=== PATIENT | male | born 1985 | race Two or more races ===

== ENCOUNTER 2023-06-04 17:12 | Emergency (ER) | payer OTHER ==
[~2023-06-04] VITALS: Ht 188 cm; Wt 72.5 kg
[2023-06-04 17:39] LABS: Basophils # (auto) 0.1 10 ^3/uL (0-0.2); Basophils % (auto) 0.9 % (0.0-2.0); Eosinophils # (auto) 0.2 10 ^3/uL (0-0.8); Eosinophils % (auto) 3.2 % (0.0-7.0); Hematocrit 41.6 % (41.0-53.0); Hemoglobin 14.7 g/dL (13.5-17.5); Lymphocytes # (auto) 2.8 10 ^3/uL (0.4-5.4); Lymphocytes % (auto) 40.8 % (10.0-50.0); Mean Corpuscular Hemoglobin 31.3 pg (28.0-32.0); Mean Corpuscular Hgb Conc. 35.2 g/dL (32.0-36.0); Mean Corpuscular Volume 88.7 fL (80.0-100.0); Monocytes # (auto) 0.6 10 ^3/uL (0-1.3); Monocytes % (auto) 8.7 % (0.0-12.0); Neutrophils # (auto) 3.2 10 ^3/uL (1.6-8.6); Neutrophils % (auto) 46.4 % (37.0-80.0); Nucleated Red Blood Cells % 0.5 %; Red Blood Cells 4.69 10^6/uL (4.5-5.90); Red Cell Distribution Width 13.5 % (11.8-14.3)
[2023-06-04 17:51] LABS: Albumin 4.2 g/dL (3.4-5.0); Calcium 9.1 mg/dL (8.5-10.1); Magnesium 2.4 mg/dL (1.6-2.6); Potassium 3.9 mmol/L (3.5-5.1)
[2023-06-04 18:03] LABS: BUN/Creatinine Ratio 16.8 (10.0-20.0); Bilirubin, Total 0.9 mg/dL (0.2-1.0); Total Protein 7.2 g/dL (6.4-8.2)
[2023-06-04] MEDS ORDERED: HYDR1CAP27 PO (19:11)
[2023-06-04 19:29] VITALS: BP 113/78
== END 2023-06-04 19:32 | disposition home or self-care (01) ==
LOC: ER 17:12
DX: R07.89 Other chest pain (principal); F41.9 Anxiety disorder, unspecified
CPT/HCPCS: 36415; 71045; 80053; 83735; 84484; 85025; 93005

== ENCOUNTER 2023-12-27 13:58 | Emergency (ER) | payer OTHER ==
[~2023-12-27] VITALS: Ht 188 cm; Wt 76.3 kg
[~2023-12-27 13:58] MED LIST: HYDR1CAP27 PO
[2023-12-27] MEDS ORDERED: DexAMETHasone SOD PHOS 10MG/1ML VIAL INJ IM ONE (14:15)
[2023-12-27] MEDS ORDERED: diphenhdrAMINE HCL 25 MG CAP PO ONE (14:15)
[2023-12-27 16:21] VITALS: BP 114/74; PULSE 81; RESP 18; TEMP 97.1; O2SAT 99
== END 2023-12-27 16:33 | disposition home or self-care (01) ==
LOC: ER 13:58
DX: R21 Rash and other nonspecific skin eruption (principal); T50.995A Adverse effect of other drugs, medicaments and biological substances, initial encounter; Z79.899 Other long term (current) drug therapy; Y92.89 Other specified places as the place of occurrence of the external cause
CPT/HCPCS: 96372; 99283; J1100